=== PATIENT | female | born 1965 | race Caucasian/White ===

== ENCOUNTER → 2016-10-03 | Day surgery (SDC) | payer OTHER ==
[~2016-10-03] MED LIST: ALLEGRA ALLERG180 MG PO; ALLEGRA PO; HARD NAILS2500 MCG PO; TOPAMAX PO; VITAMIN B122500 MCG
--- NOTE | ~2016-10-03 | OR ---
Unit #: [id number] #: [id number] Patient: ÁLVARO MONTERO [id number] [address] [place], [place] [address] [id number] MR#: [id number] NAME: ÁLVARO MONTERO ROOM: Date of Procedure: 10/03/2016 Admission Date: 10/03/2016 Surgeon: Jose Henriquez M.D. : 1965 Attending Physician: Jose Henrqiuez M.D. Primary Care Physician: Leticia Coker A.P.R.N. OPERATIVE REPORT PREOPERATIVE DIAGNOSIS Right carpal tunnel syndrome. POSTOPERATIVE DIAGNOSIS Right carpal tunnel syndrome. PROCEDURE PERFORMED Right carpal tunnel release. [employer] Kristen Mcclure. ANESTHESIA General. ESTIMATED BLOOD LOSS 5 mL. COMPLICATIONS None apparent. INDICATIONS FOR PROCEDURE Ms. Montero is a 51-year-old female, who has right carpal tunnel syndrome, which has failed conservative management. She has done well with a left carpal tunnel release. She now presents to proceed with a right carpal tunnel release. Risks, benefits, and alternatives have been reviewed and she elected to proceed. DESCRIPTION OF PROCEDURE The patient was identified in the preoperative holding area. The operative site was marked. Preoperative antibiotics were not indicated. The patient was brought to the operating room and placed supine on the operating table. A general anesthetic was induced. The right upper extremity was then identified in a formal time-out, and prepped and draped in sterile fashion. The arm was exsanguinated with HemaClear tourniquet. An incision was made along the radial border of the ring finger. Dissection was carried down through the subcutaneous tissues to the palmar fascia. The palmar fascia was divided. Dissection carried out to the distal extent of the transverse carpal ligament. A small mosquito hemostat was then passed deep to the transverse carpal ligament into the carpal canal. This was Unit #: [id number] #: [id number] Patient: ÁLVARO MONTERO then spread both above and below the ligament to minimize any risk of injury to the recurrent motor branch of the median nerve. This was then placed directly beneath the transverse carpal ligament and a 15 blade was used to incise the ligament. In this fashion, we advanced from distal to proximal releasing the transverse carpal ligament up into the distal forearm fascia. Any remaining fascial bands were divided both proximally and distally. Care was taken to ensure complete release of all possible compressing bands. Once the nerve was adequately decompressed, the wound was irrigated with sterile saline via bulb lavage. The tourniquet was then deflated. Hemostasis was achieved with bipolar electrocautery. The wound was then closed with 3-0 nylon in a horizontal mattress fashion. Soft sterile dressing was applied. DISPOSITION Stable to the recovery room. Dictated by... Ector Tang/alyse TD: 10/04/2016 01:18 JOB #: [id number] OPERATIVE REPORT Page 1 of 1 X Jose Henriquez MD X PROCEDURE OPERATIVE NOTE
== END | disposition home or self-care (01) ==
LOC: CSUR 09-19 07:30
DX: G56.01 Carpal tunnel syndrome, right upper limb (principal); F17.210 Nicotine dependence, cigarettes, uncomplicated; Z88.5 Allergy status to narcotic agent; Z79.899 Other long term (current) drug therapy; Z98.890 Other specified postprocedural states
CPT/HCPCS: J1100; J1885; J2250; J2405; J2765; J3010